=== PATIENT | male | born 1995 | race Caucasian/White ===

== ENCOUNTER 2018-12-09 20:27 | Emergency (ER) | payer BC, SELFPAY ==
[2018-12-09 20:33] VITALS: BP 138/78; PULSE 100; RESP 15; TEMP 36.5; O2SAT 100; BMI 20.7
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
[2018-12-09 21:00] LABS: Absolute Lymphocyte Count 2.62 X10^3/ul (0.83-4.51); Absolute Neutrophil Count 7.5 X10^3/uL (2.0-7.7); Basophil# 0.04 X10^3/uL; Basophil% 0.4 % (0-1); Eosinophil# 0.11 X10^3/uL; Hematocrit 40.9 % (40-54); Hemoglobin 13.6 g/dl (13.0-16.5); Lymphocyte # 2.62 X10^3/ul (4.0); Mean Corp Hgb Conc 33.3 g/gl (32-36); Mean Corpuscular Hgb 30.7 pg (27.0-32.0); Mean Corpuscular Volume 92.3 fL (80-94); Mean Platelet Vol. 10.7 fl (6.2-12.0); Monocyte# 0.61 X10^3/uL; Monocyte% 5.6 % (0-10); Neutrophil # 7.47 X10^3/uL (2.7-7.7); Neutrophil % 68.4 % (47-70); Platelet Count 225 K/mm3 (150-450); RBC Distribution Width CV 13.4 % (11.6-14.6); RBC Distribution Width SD 45.2 fl (35.1-43.9); Red Blood Count 4.43 M/mm3 (4.6-6.2); White Blood Count 10.9 K/mm3 (4.4-11.0)
[2018-12-09 21:03] LABS: POSITIVE COUNT NO; POSITIVE DIFFERENTIAL NO; POSITIVE MORPHOLOGY NO
[2018-12-09 21:16] LABS: Anion Gap 9 (5-15); BUN 23 mg/dL (7-18); BUN/Creat Ratio 20.4 RATIO (10-20); Calcium,Total 8.4 mg/dL (8.5-10.1); Chloride 106 mmol/L (98-107); Creatinine, Serum 1.13 mg/dL (0.70-1.30); EST Glomerular Filtration Rate 84 mL/min (>60); Est Glom Filt Rate - Afr Amer 102 mL/min (>60); Estimated Creatinine Clearance 89.76 ml/min; Glucose 178 mg/dL (74-106); Potassium 3.8 mmol/L (3.5-5.1); Sodium Level 143 mmol/L (136-145)
[2018-12-09] MEDS: fentaNYL 100 MCG/2 ML Ampul 50 MCG IV ×2 (21:38→21:55)
[2018-12-09 21:41] VITALS: BP 131/84; PULSE 109; RESP 15; O2SAT 98
[2018-12-09 21:44] LABS: Amphetamine Urine VISTA NEGATIVE (<1000 ng/mL); Barbiturate Urine VISTA NEGATIVE (< 200 ng/mL); Benzodiazepine Urine VISTA NEGATIVE (< 200 ng/mL); Cocaine Urine VISTA NEGATIVE (< 300 ng/mL); Ecstacy Urine VISTA NEGATIVE (< 500 ng/mL); Methadone Urine VISTA NEGATIVE (< 300 ng/mL); PCP Urine VISTA NEGATIVE (< 25 ng/mL); THC Urine VISTA NEGATIVE (< 50 ng/mL); Vista UDS pH Range 7
[2018-12-09 21:54] LABS: Alcohol, Blood (Medical)-Serum < 3.0 mg/dL
[2018-12-09] MEDS: LORazepam 2 MG/ML Syringe 1 MG IV (21:57)
[2018-12-09 22:18] VITALS: BP 125/73; PULSE 109; RESP 15; O2SAT 100
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
[2018-12-09 22:28] VITALS: BP 125/73; PULSE 109; RESP 15; O2SAT 100
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
== END 2018-12-09 22:42 | disposition short-term general hospital (02) ==
LOC: ED 21:03
PROVIDERS: Emergency Provider Emergency Medicine; Family Provider Pediatrics; PCP Pediatrics
DX: S72.301A Unspecified fracture of shaft of right femur, initial encounter for closed fracture (principal); S27.0XXA Traumatic pneumothorax, initial encounter; V49.3XXA Car occupant (driver) (passenger) injured in unspecified nontraffic accident, initial encounter; Y93.I9 Activity, other involving external motion; Y92.410 Unspecified street and highway as the place of occurrence of the external cause; Y99.8 Other external cause status
CPT/HCPCS: 32551; 71045; 73552; 80048; 80307; 80320; 85025; 96374; 96375; 99285; G0480

== ENCOUNTER 2020-06-13 15:03 | Emergency (ER) | payer OTHER, SELFPAY ==
[2020-06-13 15:05] VITALS: BP 148/113; PULSE 107; RESP 16; TEMP 36.6; O2SAT 96; BMI 20.7
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
[2020-06-13] MEDS: DiphenhydrAMINE 50 MG/ML Syringe IV (15:31)
[2020-06-13] MEDS: Famotidine 200 MG/20 ML MDV 20 MG in 0.9% Normal Saline (Pres. free 8 ML 300 MG IV (15:31)
[2020-06-13] MEDS: MethylPREDNISolone 125 MG/2 ML Vial IV (15:31)
[2020-06-13 16:06] VITALS: BP 130/66; PULSE 100; RESP 16; O2SAT 98
[2020-06-13 16:45] VITALS: BP 122/82; PULSE 83; RESP 16; O2SAT 98
== END 2020-06-13 16:46 | disposition home or self-care (01) ==
PROVIDERS: Emergency Provider Emergency Medicine; PCP Physician Assistant
DX: T63.441A Toxic effect of venom of bees, accidental (unintentional), initial encounter (principal)
CPT/HCPCS: 96365; 96375; 99283; A4216; J3490